=== PATIENT | male | born 1980 | race Caucasian/White ===

== ENCOUNTER 2019-04-18 00:07 | Emergency (ER) | payer OTHER ==
[~2019-04-18] VITALS: Ht 170.2 cm; Wt 77.1 kg
--- NOTE | 2019-04-18 00:58 | NUR ---
RT IS AT THE BEDSIDE.
[2019-04-18] MEDS ORDERED: ALBUTEROL FS 2.5 MG/3 ML VIAL.NEB NEB ONE (01:00)
[2019-04-18] MEDS ORDERED: IPRATROPIUM NEB FS 0.5 MG/2.5 ML AMPUL.NEB NEB ONE (01:00)
[2019-04-18] MEDS ORDERED: ALBUTEROL FS 2.5 MG/3 ML VIAL.NEB ONE (01:04)
[2019-04-18] MEDS ORDERED: IPRATROPIUM NEB FS 0.5 MG/2.5 ML AMPUL.NEB ONE (01:04)
--- NOTE | 2019-04-18 01:08 | NUR ---
BREATHING TX STARTED.
--- NOTE | 2019-04-18 01:44 | NUR ---
Patient discharged to home in stable condition. Written and verbal after care instructions given. Patient verbalizes understanding of instruction. Pt ambulatory with a steady gait
[2019-04-18 01:46] VITALS: BP 106/77
== END 2019-04-18 01:46 | disposition home or self-care (01) ==
LOC: ER 00:13
DX: J45.901 Unspecified asthma with (acute) exacerbation (principal)